=== PATIENT | male | born 1935 | race Caucasian/White ===

== ENCOUNTER 2016-11-10 11:35 | Inpatient (IN) ==
[2016-11-10] MEDS ORDERED: ONDANSETRON 4 MG/2 ML VIAL IV PRN ×2 (12:04→14:55)
[2016-11-10] MEDS ORDERED: FUROSEMIDE 100 MG/10 ML VIAL IV STA (12:04)
[2016-11-10] MEDS ORDERED: MAGNESIUM SULF RIDER 2 GM in PREMIX 1 EACH IV STA (12:04)
--- NOTE | 2016-11-10 12:10 | Emergency Department Note ---
Mina Figueroa Gwan, am scribing for, and in the presence of, Prince Fairbanks MD 12:03 . Tiki Figueroa James D, MD, personally performed the services described in this documentation, ascribed by Benny Enriquez in my presence, and it is both accurate and complete . Arrival - Arrival Chief Complaint: Shortness of Breath ED Nursing Triage Note: PT C/O SOB AND EDEMA TO BLE SINCE YESTERDAY. HOME HEALTH EVALUATED PT YESTERDAY. PT RECEIVING CHEMO FOR SKIN CANCER, LAST TREATMENT WAS 1 WEEK AGO. PICC LINE TO LEFT AC. Mode of Arrival: Stretcher Limitations: No Limitations Source: Patient, Old Records Reviewed, RN Notes Reviewed Time Seen by Provider: 11/10/16 11:57 - History of Present Illness HPI Narrative: Pt is a 81 y/o male who presents to the ED with a c/o SOB and bilateral lower extremity edema with an onset yesterday. Patient has a hx of skin CA and received her last chemotherapy tx 1 week ago. Patient stated that his associated sxs have been dry cough. Patient is followed by Dr. Servin. Patient denies a kidney/liver problems, any hx of heart problems or a SHx of smoking cigarettes or drinking ETOH. . Onset (ago): day(s) Consistency: constant Severity: moderate Allergies/Adverse Reactions: Allergies Allergy/AdvReac Type Severity Reaction Status Date / Time No Known Allergies Allergy Verified 11/10/16 11:46 Home Medications: Home Medications Medication Instructions Recorded Confirmed Type Captopril/Hydrochlorothiazide 1 tablet PO DAILY 11/10/16 11/10/16 History [Captopril-Hctz 25-25 mg Tablet] Insulin NPH Hum/Reg Insulin Hm 40 units SUBCUT QPM 11/10/16 11/10/16 History [NovoLIN 70/30] Insulin NPH Hum/Reg Insulin Hm 60 units SUBCUT QAM 11/10/16 11/10/16 History [NovoLIN 70/30] Ondansetron HCl [Ondansetron HCl] 8 mg PO Q6H PRN 11/10/16 11/10/16 History Potassium Chloride [Klor-Con 8 meq PO BID 11/10/16 11/10/16 History Sprinkle] Pravastatin Sodium [Pravastatin 20 mg PO PC SUPPER 05/04/17 05/04/17 History Sodium] Verapamil HCl [Verapamil ER Tab] 240 mg PO DAILY 11/10/16 11/10/16 History Medical,Surgical,& Family Hx - Medical History Cardio: History of: Hypertension Neurology: History of: Seizures Endocrine: History of: Diabetes Mellitus (IDDM), Dyslipidemia Other: History of: Miscellaneous Medical Problems (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 VITAL SIGNS: HEENT: Head is normocephalic and atraumatic. Pupils are equally round and reactive to light. Extraocular movement are intact. Oropharynx is benign with moist mucous membranes. NECK: Neck is soft and supple without tenderness. There are no masses. There is no lymphadenopathy. LUNGS: Lungs are clear to auscultation bilaterally. Chest rises symmetrically. There is no chest wall tenderness. CV: Heart is regular rate and rhythm without murmurs, rubs, or gallops. ABDOMEN: Abdomen is soft, non-tender to palpation. There are no abnormal masses palpated. There is no organomegaly. Bowel sounds are present and active. SKIN: Skin is warm and dry. No rash. EXTREMITIES: Patient has full range of motion without tenderness. There is no pedal edema. NEUROLOGIC: Awake, alert, and oriented x4. Cranial nerves II through XII are grossly intact. There are no motorsensory deficits. PSYCHIATRIC: Normal affect. Normal mood. Vital Signs: Vital Signs Temperature 96.3 F L 11/10/16 11:43 Pulse Rate 84 11/10/16 14:08 Respiratory Rate 20 11/10/16 14:08 Blood Pressure 124/70 11/10/16 14:08 O2 Sat by Pulse Oximetry 91 L 11/10/16 14:08 Course Course Narrative: Thoracentesis was performed by interventional radiology. Fluid was sent to the lab for appropriate studies. - Consultations Consultation #1: We will admit to Dr. Servin's service. Initial orders written for him. He will assume care upon patient's arrival in the [facility]. 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
[2016-11-10 12:24] LABS: Basophils % 0.1 % (0.0-0.8); Eosinophils % 0.1 % (0.00-10.9); Hematocrit 37.3 VOL% (42.0-52.0); Hemoglobin 12.5 GM/DL (14.0-18.0); Immature Granulocytes Absolute 0.16 #; Lymphocytes # 0.4 10*3/uL (1.4-4.0); Lymphocytes % 2.4 % (21.2-54.2); Mean Corpuscular HGB Conc 33.5 GM/DL (32-36); Mean Corpuscular Hemoglobin 34 PG (27-34); Mean Corpuscular Volume 101.9 FL (87-102); Mean Platelet Volume 11.9 FL (9.6-12.0); Monocytes # 1.3 10*3/uL (0.11-0.8); Monocytes % 8.2 % (1.7-12.7); Neutrophils # 14.1 10*3/uL (1.4-7.4); Neutrophils % 88.2 % (38.7-73.9); Platelet Count 137 T/CUMM (130-400); Red Blood Count 3.66 MC/CUMM (3.8-5.5); Red Cell Distribution Width 14.7 % (9.3-17.3)
[2016-11-10] MEDS ORDERED: MAGNESIUM SULF RIDER 50 ML IV ONE (12:27)
[2016-11-10] MEDS ORDERED: ONDANSETRON 4 MG/2 ML VIAL ONE (12:27)
[2016-11-10] MEDS ORDERED: FUROSEMIDE 100 MG/10 ML VIAL ONE (12:27)
[2016-11-10 12:44] LABS: Band Neutrophils 3 % (0-10); Lymphocytes 3 % (20-55); Platelet Estimate Adequate; Segmented Neutrophils 87 % (50-85); Total Cells Counted 100
[2016-11-10 12:57] LABS: ABG Base Excess -9.3 MMOL/L (-2.5-2.5); ABG Oxygen Saturation 96.3 % (95-100); ABG PCO2 26.9 MM HG (35-48); ABG PH 7.352 (7.35-7.45); ABG PO2 89.2 MM HG (80-95); ABG TCO2 13.2 MMOL/L (23-27)
--- NOTE | 2016-11-10 13:00 | CT Report ---
CT of the chest with intravenous contrast, PE protocol. Indication: Dyspnea. Shortness of breath. 80 cc Omni 350. Axial images were obtained with sagittal and coronal 2-D and 3-D reconstructions. Comparison is made with the previous exam of June 08, 2016. Since the May study, there has been filling of the right hemithorax with pleural fluid. It expands the thorax, beyond the confines of this study. There has developed lobular pleural thickening consistent with pleural-based neoplasm. The right lung is completely collapsed. There is mass effect and midline shift to the left. There is a moderate left pleural effusion. The left upper lobe is relatively well aerated. Moderate atelectasis of the left lower lobe. Allowing for the collapsed portion of right lung. There is no evidence of pulmonary thromboembolism. The thoracic aorta is of normal caliber. The heart is normal in size with coronary artery calcification. No definite hilar or mediastinal lymphadenopathy is seen. Within the subpectoral region and right axilla, multiple enlarged lymph nodes have developed, the largest one measures 2.3 cm in diameter. Enlarged lymph nodes have developed in the thoracic inlet. Within the liver, there are multiple masses seen, not present on the previous study. In the medial posterior left lobe, an ill-defined mass measures 3.8 cm. Within the right lobe, a partially included mass measures 2.9 cm. At the superior margin of the sternum, just to the left of midline. An expansile mass has developed, measuring 2.9 cm. An additional 3.3 cm mass is seen within the right lower aspect of the sternum, not present previously. There is a posterior right rib fracture which was not present previously. Along the right paravertebral area, there has developed an enhancing mass measuring 3.5 cm, only partially included on the exam, no canal. Numerous lucent lesions are seen within the vertebral bodies suspicious for metastatic disease. Impression: 1. No evidence of pulmonary thromboembolism. 2. Development of complete collapse of the right lung and filling of the right hemithorax with fluid. This exerts significant mass effect on the mediastinum. 3. There is bulky lobular pleural-based mass noted throughout the right hemithorax suspicious for metastatic disease or primary neoplasm. 4. There is adenopathy of the thoracic inlet, right axillary region, and right subpectoral region which has developed in the interval. 5. There is a right lower thoracic paravertebral mass which is only partially included on the exam. 6. There has been development of extensive osseous metastatic disease with 2 large lesions in the sternum and multiple lesions within the spinal canal. It is a new right rib fracture. 7. On the left, there is a moderate pleural effusion. The CT exam was performed using one or more of the following dose reduction techniques: Automated exposure control, adjustment of the mA and/or kV according to patient size, or use of iterative reconstruction technique. PROCEDURE INTERPRETED AT [facility] DEPARTMENT OF RADIOLOGY Final Report Signed by: Dr. Rae Ornelas
[2016-11-10 13:02] LABS: Alanine Aminotransferase 17 U/L (16-61); Albumin 2.2 G/DL (3.4-5.0); Alkaline Phosphatase 103 U/L (45-117); Aspartate Amino Transferase 61 U/L (0-37); Blood Urea Nitrogen 65 MG/DL (7-18); Calcium 8.1 MG/DL (8.5-10.1); Glucose 271 MG/DL (74-106); Magnesium 2.6 MG/DL (1.8-2.4); Osmolality,Calculated 303.7 MOS/KG (273-304); Potassium 4.6 MMOL/L (3.5-5.1); Sodium 138 MMOL/L (136-145); Total Protein 5.4 G/DL (6.4-8.3); Troponin I Only < 0.015 NG/ML (0.00-0.045)
[2016-11-10 13:08] LABS: Albumin 2.3 G/DL (3.4-5.0); Total Protein 6.4 G/DL (6.4-8.3)
--- NOTE | 2016-11-10 13:08 | Ultrasound Report ---
Bilateral lower extremity venous Doppler with valdez scale, Spectral Doppler and color-flow analysis performed and interpreted. Indication: Lower extremity edema Scanning over both common femoral veins, superficial femoral veins, greater saphenous veins and popliteal veins demonstrates normal compressibility, color flow, and augmentation. Impression: No evidence of DVT seen in either lower extremity. PROCEDURE INTERPRETED AT [facility] DEPARTMENT OF RADIOLOGY Final Report Signed by: Dr. Rae Ornelas
[2016-11-10 13:16] LABS: Apearance,Urine CLEAR (Clear); Bacteria,Urine Occasional /HPF (Few); Bilirubin,Urine Negative (Negative); Blood, Urine Negative (Negative); Glucose,Urine (UA) Negative (Negative); Hyaline Casts,Urine 65 /LPF (0-3); Ketones,Urine 20 mg/dL (Negative); Mucus,Urine Occasional /LPF (Occasional); Nitrite,Urine Negative (Negative); Protein,Urine Negative; Squamous Epithelial Cell,Urine Occasional /HPF (0-10); Urine Color Yellow (Yellow); Urine Specific Gravity 1.016 (1.001-1.035); Urine Urobilinogen < 2.0 EU/DL (0.2-1.0); WBC,Urine 1 /HPF (0-6)
[2016-11-10 13:58] LABS: INR 1.2; PT Patient Result 13.2 SECS; Partial Thromboplastin Time 34.9 SECS (0-40)
--- NOTE | 2016-11-10 14:43 | XRay Report ---
Portable chest. Indication: Shortness of breath. Previous thoracentesis. Comparison: CT of the chest from earlier today. There has been a right-sided thoracentesis, with reduction in the amount of fluid in the right hemithorax. There are bilateral pleural effusions present. No pneumothorax is seen. There is partial reexpansion of the right upper lobe. Degenerative changes are noted within the spinal column. The distal tip of the PICC line is in the distal SVC. Impression: Status post right-sided thoracocentesis with partial reexpansion of the right upper lobe. No pneumothorax is seen. PROCEDURE INTERPRETED AT [facility] DEPARTMENT OF RADIOLOGY Final Report Signed by: Dr. Rae Ornelas
[2016-11-10] MEDS ORDERED: TEMAZEPAM 7.5 MG CAPSULE PO PRN (14:55)
[2016-11-10] MEDS ORDERED: BENZTROPINE 2 MG/2 ML AMP IV PRN (14:55)
[2016-11-10] MEDS ORDERED: guaiFENesin 200 MG/10 ML UDCUP PO PRN (14:55)
[2016-11-10] MEDS ORDERED: ALPRAZolam 0.25 MG TABLET PO PRN (14:55)
[2016-11-10] MEDS ORDERED: PROMETHAZINE INJ 25 MG in SODIUM CHLORIDE 0.9% 50 ML IV PRN (14:55)
[2016-11-10] MEDS ORDERED: LOPERAMIDE 2 MG CAPSULE PO PRN ×2 (14:55)
[2016-11-10] MEDS ORDERED: MYLANTA/LIDO VISC 2:1 300 ML BOTTLE SWISH/SWAL PRN (14:55)
[2016-11-10] MEDS ORDERED: chlorproMAZINE 25 MG TABLET PO PRN (14:55)
[2016-11-10] MEDS ORDERED: MAGNESIUM HYDROXIDE SUSP 30 ML UDCUP PO PRN (14:55)
[2016-11-10] MEDS ORDERED: SODIUM CHLORIDE 0.9% 1,000 ML IV SCH (14:55)
[2016-11-10] MEDS ORDERED: traMADol 50 MG TABLET PO PRN (14:55)
[2016-11-10] MEDS ORDERED: chlorproMAZINE INJ 25 MG in SODIUM CHLORIDE 0.9% 100 ML IV PRN (14:55)
[2016-11-10] MEDS ORDERED: diphenhydrAMINE CAP 25 MG CAPSULE PO PRN (14:55)
[2016-11-10] MEDS ORDERED: MYLANTA/LIDO VISC 2:1 300 ML BOTTLE SWISH/SPIT PRN (14:55)
[2016-11-10] MEDS ORDERED: ALUMINUM/MAGNES/SIMETH MAX STR 30 ML UDCUP PO PRN (14:55)
[2016-11-10] MEDS ORDERED: ACETAMINOPHEN 325 MG TABLET PO PRN (14:55)
[2016-11-10] MEDS ORDERED: chlorproMAZINE INJ 50 MG in SODIUM CHLORIDE 0.9% 100 ML IV PRN (14:55)
[2016-11-10] MEDS ORDERED: LACTULOSE 20 GM/30 ML UDCUP PO PRN (14:55)
[2016-11-10 14:57] LABS: Amylase,Pleural Fluid 18 U/L; Glucose,Pleural Fluid 181 MG/DL; LDH,Pleural Fluid 2737 U/L; Total Protein,Pleural Fluid 3.8 G/DL
--- NOTE | 2016-11-10 15:10 | Ultrasound Report ---
US thoracentesis Indication: Large right pleural effusion. ULTRASOUND-GUIDED THORACENTESIS Description: A formal timeout was performed. Maximum sterile barrier technique was used. A right pleural effusion was identified with ultrasound. The right back was prepped and draped in sterile fashion. Under sonographic guidance, a 6 Amharic pigtail catheter was advanced into the effusion using trocar technique. A captured sonographic image documents needle position. The needle was removed. Through the catheter, we obtained a total of 2000 cc of serosanguineous fluid. The catheter was removed. A bandage was placed at the puncture site. The patient tolerated the procedure well. Chest radiograph is pending. Impression: Ultrasound-guided thoracentesis. PROCEDURE INTERPRETED AT [facility] DEPARTMENT OF RADIOLOGY Final Report Signed by: Arash Irby M.D.
[2016-11-10 15:24] LABS: Lymphocytes,Pleural Fluid 23 %; Monocytes,Pleural Fluid 3 %; Neutrophils,Pleural Fluid 74 %; RBC,Pleural Fluid 46992 T/CUMM
[2016-11-10] MEDS ORDERED: DEXTROSE 50% 25 GM/50 ML VIAL IV PRN (17:11)
[2016-11-10] MEDS ORDERED: GLUCAGON 1 MG VIAL IM PRN (17:11)
[2016-11-11 05:50] LABS: Basophils % 0.1 % (0.0-0.8); Eosinophils % 0.2 % (0.00-10.9); Hematocrit 33.6 VOL% (42.0-52.0); Hemoglobin 11.2 GM/DL (14.0-18.0); Immature Granulocytes % 0.7 %; Lymphocytes # 0.3 10*3/uL (1.4-4.0); Lymphocytes % 2.2 % (21.2-54.2); Mean Corpuscular HGB Conc 33.3 GM/DL (32-36); Mean Corpuscular Hemoglobin 34 PG (27-34); Mean Corpuscular Volume 102.8 FL (87-102); Mean Platelet Volume 12.2 FL (9.6-12.0); Monocytes # 1.5 10*3/uL (0.11-0.8); Monocytes % 10.2 % (1.7-12.7); Neutrophils # 12.5 10*3/uL (1.4-7.4); Neutrophils % 86.6 % (38.7-73.9); Platelet Count 109 T/CUMM (130-400); Red Blood Count 3.27 MC/CUMM (3.8-5.5); Red Cell Distribution Width 14.7 % (9.3-17.3); White Blood Count 14.4 T/CUMM (4-12)
[2016-11-11 06:12] LABS: Bilirubin,Total 0.4 MG/DL (0.2-1.0); Calcium 7.7 MG/DL (8.5-10.1); Osmolality,Calculated 303.7 MOS/KG (273-304); Potassium 4.2 MMOL/L (3.5-5.1); Total Protein 4.8 G/DL (6.4-8.3)
[2016-11-11 06:21] LABS: Lymphocytes 3 % (20-55); Total Cells Counted 100
[2016-11-11 06:22] LABS: Anisocytosis 1+; Macrocytosis 1+; Platelet Estimate Decreased; Segmented Neutrophils 86 % (50-85)
[2016-11-11 06:23] LABS: Ovalocytes Few
[2016-11-11] MEDS: INSULIN REGULAR 100 UNIT/ML SUBCUT SCH ×2 (09:19→16:58)
[2016-11-11] MEDS: MORPHINE 2 MG/1 ML SYRINGE IV PRN ×2 (09:21→19:58)
--- NOTE | 2016-11-11 09:23 | Oncology History&Physical ---
Assessment and Plan (1) [place] cell carcinoma Status: Acute Assessment and plan: Plan is palliative care. I will keep the patient inpatient for now with home hospice to be arranged if able to be discharged on Monday. Pain control with IV morphine and transdermal fentanyl Current Visit: Yes History of Present Illness Chief complaint: Weakness and shortness of breath History of present illness: Mr. 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 History of several attempts at resection as well as radiotherapy 2. He is recently received several lines of chemotherapy with only brief benefit. He was admitted with profound weakness and has large right pleural effusion. 2 L thoracentesis was performed yesterday with exudative findings noted. Cultures negative at [address] showed interval development of widespread metastatic disease to the bones hilum and right pleura. He is interviewed and examined today with his daughter from [place]. The patient notify my office earlier this week of his decision to not pursue further chemotherapy treatment. Home Medications Medication Instructions Recorded Confirmed Type Captopril/Hydrochlorothiazide 1 tablet PO DAILY 11/10/16 11/10/16 History [Captopril-Hctz 25-25 mg Tablet] Insulin NPH Hum/Reg Insulin Hm 40 units SUBCUT QPM 11/10/16 11/10/16 History [NovoLIN 70/30] Insulin NPH Hum/Reg Insulin Hm 60 units SUBCUT QAM 11/10/16 11/10/16 History [NovoLIN 70/30] Ondansetron HCl [Ondansetron HCl] 8 mg PO Q6H PRN 11/10/16 11/10/16 History Potassium Chloride [Klor-Con 8 meq PO BID 11/10/16 11/10/16 History Sprinkle] Pravastatin Sodium [Pravastatin 20 mg PO PC SUPPER 11/10/16 11/10/16 History Sodium] Verapamil HCl [Verapamil ER Tab] 240 mg PO DAILY 11/10/16 11/10/16 History Allergies Allergy/AdvReac Type Severity Reaction Status Date / Time No Known Allergies Allergy Verified 11/10/16 11:46 Medical,Surgical,& Family Hx - Medical History Cardio: History of: Hypertension Neurology: History of: Seizures Endocrine: History of: Diabetes Mellitus (IDDM), Dyslipidemia Other: History of: Miscellaneous Medical Problems (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 Absent: fever(s) - EENT Eye: Absent: blurry vision Ears: Absent: decreased hearing Nose, mouth and throat: Absent: dizziness, dysphagia, epistaxis - Cardiovascular Cardiovascular ROS IM: Absent: chest pain - Respiratory Respiratory: Present: dyspnea. Absent: hemoptysis - Gastrointestinal Gastrointestinal: Present: early satiety. Absent: dysphagia, hematemesis - Musculoskeletal Musculoskeletal ROS: Present: back pain - Neurological Neurological ROS: Absent: abnormal speech, behavioral changes - Psychiatric Psychiatric General: Absent: confusion Exam - Constitutional Vitals: Period Temp Pulse Resp BP Sys/Marino Pulse Ox Last 24 Hr 96 F-98.3 F 75-96 18-22 100-155/50-73 90-98 General appearance: mild distress, over weight - Head Head Exam: Present: normal inspection, normocephalic - Eye Eye Exam: Present: EOMI. Absent: conjunctival injection, periorbital swelling, scleral icterus - ENT ENT exam: Absent: normal external ear exam (Large mass-effect left posterior ear ) - Neck Neck exam: Present: lymphadenopathy - Respiratory Respiratory exam: Present: decreased breath sounds (Right thorax). Absent: accessory muscle use, wheezes - Cardiovascular Cardiovascular exam: Present: RRR - GI/Abdominal GI/Abdominal exam: Absent: distended, firm, guarding - Neurological Exam Neurological exam: Present: alert, oriented X3 Results - Labs CBC & BMP: 11/11/16 04:00 11/11/16 04:00
[2016-11-11] MEDS: fentaNYL 25 MCG/HR PATCH TRANSDERM SCH (09:25)
[2016-11-11] MEDS ORDERED: ONDANSETRON 4 MG TABLET PO PRN (09:43)
--- NOTE | 2016-11-11 10:38 | XRay Report ---
XR chest 1V portable Indication: Pleural effusion Comparison: 10 Nov 2016 Findings: The heart and mediastinum are normal in size and configuration. The pulmonary vascularity is normal in caliber. Large right pleural effusion is present with increased right lung density and volume loss when compared to previous. No other lung infiltrates, effusions, pneumothorax or other abnormality is demonstrated. Impression: Large right pleural effusion and increasing right lung density may indicate worsening atelectasis and/or underlying infiltrate. PROCEDURE INTERPRETED AT [facility] DEPARTMENT OF RADIOLOGY Final Report Signed by: Dr. Jarrod Avendaño
[2016-11-11] MEDS: VERAPAMIL SR 240 MG TABLET PO SCH (13:17)
[2016-11-12] MEDS: MORPHINE 2 MG/1 ML SYRINGE IV PRN ×6 (00:56→22:51)
--- NOTE | 2016-11-12 06:53 | Oncology Progress Note ---
Assessment and Plan (1) [place] cell carcinoma Status: Acute Current Visit: Yes (2) Malignant pleural effusion Status: Acute Current Visit: Yes Oncology Subjective PN Interval history: Mr. Tavarez is doing well with no new complaints. He is resting comfortably. He is on comfort measures only. The plan is to discharge him home with home hospice of the first part of next week. His daughter was at bedside today. He is awake and alert. He seemed to be in good spirits. His lungs are clear to auscultation. Exam - Constitutional Vitals: Period Temp Pulse Resp BP Sys/Marino Pulse Ox Last 24 Hr 96.3 F-97.6 F 80-91 14-22 114-153/56-87 83-95 General appearance: normal weight, no acute distress - Head Head Exam: Present: normocephalic, atraumatic - Neck Neck exam: Absent: lymphadenopathy, thyromegaly - Respiratory Respiratory exam: Present: CTAB. Absent: wheezes - Cardiovascular Cardiovascular exam: Present: RRR. Absent: JVD Results - Labs CBC & BMP: 11/11/16 04:00 11/11/16 04:00 Lab Results: I have reviewed the past 24 hour labs
[2016-11-12] MEDS ORDERED: HEPARIN LOCK FLUSH 500 UNIT/5 ML SYRINGE IV ONE ×2 (09:30→14:37)
[2016-11-12] MEDS: VERAPAMIL SR 240 MG TABLET PO SCH (09:41)
[2016-11-13] MEDS: MORPHINE 2 MG/1 ML SYRINGE IV PRN ×4 (02:03→20:27)
--- NOTE | 2016-11-13 09:32 | Oncology Progress Note ---
Assessment and Plan (1) [place] cell carcinoma Status: Acute Current Visit: Yes (2) Malignant pleural effusion Status: Acute Current Visit: Yes Oncology Subjective PN Interval history: Mr. Tavarez is an 81-year-old white male with advanced [place] cell carcinoma currently on comfort measures only. He was much less arousable today than he was yesterday. He was taking shallow breaths but did not appear uncomfortable. I was unable to awaken him. His daughter was at bedside she and I had a long discussion about his current condition that I am not sure if he will leave the hospital for home hospice if he remains in his condition. Given that he appears comfortable I do not see any reason to consider re-tapping his right pleural effusion. I will hold off on ordering a chest x-ray at this point as well. If he does wake up more later today, we could reconsider doing a chest x- ray at that time. At this point I am unsure if he will make it to the next 24 hours. Exam - Constitutional Vitals: Period Temp Pulse Resp BP Sys/Marino Pulse Ox Last 24 Hr 96 F-96.0 F 72-90 12-20 97-103/47-66 93-93 General appearance: normal weight, no acute distress - Head Head Exam: Present: normocephalic, atraumatic - Neck Neck exam: Absent: lymphadenopathy, thyromegaly - Respiratory Respiratory exam: Present: CTAB. Absent: wheezes - Cardiovascular Cardiovascular exam: Present: RRR. Absent: irregular rhythm - GI/Abdominal GI/Abdominal exam: Present: soft. Absent: ascites, firm, mass Results - Labs CBC & BMP: 11/11/16 04:00 11/11/16 04:00
[2016-11-13] MEDS: VERAPAMIL SR 240 MG TABLET PO SCH (13:43)
[2016-11-14] MEDS: MORPHINE 2 MG/1 ML SYRINGE IV PRN ×2 (00:37→23:30)
--- NOTE | 2016-11-14 08:46 | Oncology Progress Note ---
Assessment and Plan (1) [place] cell carcinoma Status: Acute Assessment and plan: Plan is palliative care. I will keep the patient inpatient for now with home hospice to be arranged if able to be discharged on Monday. Pain control with IV morphine and transdermal fentanyl Current Visit: Yes Oncology Subjective PN Interval history: Patient is resting with occasional periods of agitation. His daughter is at bedside. Ativan 1 mg IV every 4 hours will be added for improved comfort along with morphine 4 mg every 2 hours as needed and fentanyl 25 g patch. He has decreased breath sounds in the left lung. He is on 2 L nasal cannula. There is been difficulty with both blood pressure and oxygen saturation recordings. His abdomen is nontender. He does respond to voice. Continue with comfort measures. Will keep inpatient Exam - Constitutional Vitals: Period Temp Pulse Resp BP Sys/Marino Pulse Ox Last 24 Hr 96.7 F 80-80 12-20 90/54 93 Results - Labs CBC & BMP: 11/11/16 04:00 11/11/16 04:00
[2016-11-14] MEDS: VERAPAMIL SR 240 MG TABLET PO SCH (09:06)
[2016-11-14] MEDS: fentaNYL 25 MCG/HR PATCH TRANSDERM SCH (09:16)
[2016-11-14] MEDS: LORazepam 2 MG/1 ML VIAL IV PRN (09:16)
[2016-11-15] MEDS: MORPHINE 2 MG/1 ML SYRINGE IV PRN ×4 (05:38→14:37)
[2016-11-15 08:09] VITALS: BP 114/55
[2016-11-15] MEDS: VERAPAMIL SR 240 MG TABLET PO SCH (08:10)
--- NOTE | 2016-11-15 08:34 | Oncology Progress Note ---
Assessment and Plan (1) [place] cell carcinoma Status: Acute Assessment and plan: Plan is palliative care. I will keep the patient inpatient for now with home hospice to be arranged if able to be discharged on Monday. Pain control with IV morphine and transdermal fentanyl Current Visit: Yes Oncology Subjective PN Interval history: Less responsive today. Daughter at bedside. Increased pulmonary congestion is noted. Small amount of concentrated urine in Dunn container. Vitals are notable for pulse 99 blood pressure 114 systolic. O2 saturations 91% on nasal cannula. Obese abdomen but soft nontender. His heart rhythm is regular. His pupils are equal at 3 mm bilaterally. Continue with comfort measures with low doses as needed of Ativan and morphine. Exam - Constitutional Vitals: Period Temp Pulse Resp BP Sys/Marino Pulse Ox Last 24 Hr 96 F-96.2 F 93-99 16-20 99-114/51-55 91-97 Results - Labs CBC & BMP: 11/11/16 04:00 11/11/16 04:00
[2016-11-15] MEDS: LORazepam 2 MG/1 ML VIAL IV PRN ×2 (08:35→11:23)
--- NOTE | 2016-11-23 08:31 | Discharge Summary ---
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 This patient has been on outpatient treatment for the last 8-10 months approximately. He was admitted with weakness and dyspnea. He was found to have a large right-sided pleural effusion and underwent a 2 L thoracentesis. Cytology ultimately returned as class V and positive. CT scans were performed showing multiple other sites of metastatic disease including lungs and bones. The patient was treated in a palliative manner with analgesia and oxygen. His family was present on a daily basis and daily discussions regarding his case and care were undertaken. The patient per electronic medical record. Diagnosis - Discharge Diagnosis (1) [place] cell carcinoma Status: Acute Discharge Plan - Discharge Data Disposition: - Discharge Medications No Action Ondansetron HCl [Ondansetron HCl] 8 mg PO Q6H PRN PRN Reason: Nausea/Vomiting Verapamil HCl [Verapamil ER Tab] 240 mg PO DAILY Pravastatin Sodium [Pravastatin Sodium] 20 mg PO PC SUPPER Potassium Chloride [Klor-Con Sprinkle] 8 meq PO BID Captopril/Hydrochlorothiazide [Captopril-Hctz 25-25 mg Tablet] 1 tablet PO DAILY Insulin NPH Hum/Reg Insulin Hm [NovoLIN 70/30] 60 units SUBCUT QAM Insulin NPH Hum/Reg Insulin Hm [NovoLIN 70/30] 40 units SUBCUT QPM - Follow Up or Referral - Forms/Instructions Discharge Results Labs on day of discharge: Preliminary micro results at discharge 11/10/16 Unknown Mycobacterial Culture - Preliminary Pleural Fluid No AFB isolated at 2 weeks 11/10/16 Unknown Fungal Culture - Preliminary Pleural Fluid No Fungus isolated at 1 week DS: Provider Date of admission: 11/10/16 12:42 Primary care physician: Elli Molina Attending physician on admission: Arash Servin MD Consults: 11/10/16 15:01 Consult to Pharmacy [CONS] Routine Reason for Pharmacy Consult: Adjust Meds Renal Funct Discharging clinician: Arash Servin MD
== END 2016-11-15 16:25 | disposition expired | DRG 596 ==
LOC: EDUNIT# → N.ED 11:35 → N.EDINP 12:42 → N.4E 14:31
PROVIDERS: ADMIT Specialist; ATTEND Specialist